=== PATIENT | female | born 1965 | race Caucasian/White ===

== ENCOUNTER 2023-04-21 17:03 | Emergency (ER) | payer BC ==
[~2023-04-21] VITALS: Ht 167.6 cm; Wt 71.2 kg
[2023-04-21] MEDS ORDERED: LIDOCAINE 1%-EPI 1:100,000 20 ML VIAL ONE (17:10)
[2023-04-21] MEDS ORDERED: AMOX/CLAVULANATE 875 MG TABLET ONE (17:28)
[2023-04-21] MEDS ORDERED: TDAP [DIPH/PERTUSSIS/TET] 0.5 ML VIAL IM ONE ×2 (17:29→17:30)
[2023-04-21] MEDS ORDERED: LIDOCAINE 1%-EPI 1:100,000 20 ML VIAL TP ONE (17:30)
[2023-04-21] MEDS ORDERED: AMOX/CLAVULANATE 875 MG TABLET PO ONE (17:30)
[2023-04-21] MEDS ORDERED: AMOX-430 PO (18:25)
[2023-04-21 18:35] VITALS: BP 130/65; TEMP 98.7; O2SAT 100
== END 2023-04-21 18:33 | disposition home or self-care (01) ==
LOC: ER 17:03
DX: S51.812A Laceration without foreign body of left forearm, initial encounter (principal); W54.0XXA Bitten by dog, initial encounter; Y93.89 Activity, other specified; Y92.89 Other specified places as the place of occurrence of the external cause; Y99.8 Other external cause status
CPT/HCPCS: 12006; 90471; 90715; 99283; A6403; J3490